=== PATIENT | female | born 1995 | race Caucasian/White ===

== ENCOUNTER 2019-12-21 13:45 | Emergency (ER) | payer OTHER ==
[2019-12-21 14:37] LABS: BILIRUBIN,URINE NEGATIVE (NEGATIVE); CLARITY,URINE CLEAR (CLEAR); GLUCOSE, URINE (UA) NEGATIVE (NEGATIVE); KETONES,URINE (UA) NEGATIVE (NEGATIVE); LEUKOCYTE ESTERASE, URINE TRACE (NEGATIVE); NITRITE,URINE NEGATIVE (NEGATIVE); OCCULT BLOOD,URINE NEGATIVE (NEGATIVE); PROTEIN,URINE NEGATIVE (NEGATIVE); UROBILINOGEN,URINE 0.2 (NORMAL) E.U./dL (NORMAL)
[2019-12-21] MEDS ORDERED: SODIUM CHLORIDE 0.9% 1,000 ML IV STA (14:43)
[2019-12-21] MEDS ORDERED: HYDROmorphone 1 MG/ML CARPUJECT IVP STA (14:43)
--- NOTE | 2019-12-21 14:43 | ED Physician Documentation ---
History of Present Illness - Stated complaint Stated Complaint: ABD PX - Chief complaint Chief Complaint: Abd Pain - History obtained from History obtained from: Patient - History of Present Illness Timing: Prior to arrival - Additonal information Additional information: 24-year-old female presents to the emergency department for sudden onset right lower quadrant abdominal pain she noted this a.m. when she woke up. She reports that it started in the periumbilical area before landing in her right lower quadrant. She has no pertinent past surgical history other than a . She reports that she really retains both of her ovaries and her appendix. Denies fevers vomiting dysuria. Denies possibility of has Nexplanon in place. Review of Systems Constitutional: reports: Reviewed and negative Throat: reports: Reviewed and negative Cardiac: reports: Reviewed and negative Respiratory: reports: Reviewed and negative GI: reports: Abdominal Pain. denies: Nausea, Vomiting, Diarrhea, Hematemesis : reports: Dysuria. denies: Frequency, Hesitancy Skin: reports: Reviewed and negative Musculoskeletal: reports: Reviewed and negative PD PAST MEDICAL HISTORY - Present Medications Home Medications: Ambulatory Orders Medication Instructions Recorded Confirmed Polyethylene Glycol 3350 [Miralax] 17 gm PO DAILY PRN #1 bottle 12/21/19 - Allergies Allergies/Adverse Reactions: Allergies Allergy/AdvReac Type Severity Reaction Status Date / Time amoxicillin Allergy Unknown Verified 12/21/19 14:05 bee venom protein (honey bee) Allergy Hives Verified 12/21/19 14:05 PD ED PE EXPANDED - General General: Alert. No: Anxious, In Pain - Cardiac Cardiac: Regular Rate, Radial strong equal, Pedal strong equal, Cap refill < 2 sec. No: Murmur Present - Respiratory Respiratory: Clear to ausultation lurdes. No: Distress, Labored - Abdomen Abdomen: Normal Bowel sounds, RLQ (Tenderness the right lower quadrant with mild guarding and rebound. Positive McBurney's) - Extremities Extremities: Normal - Neuro Neuro: Alert and Oriented X 3, CNII-XII intact - GCS Eye Opening: Spontaneous Motor: Obeys Commands Verbal: Oriented Total: 15 Results - Vitals Vitals: Vital Signs - 24 hr 12/21/19 12/21/19 13:58 16:04 Temperature 36.8 C Heart Rate 91 90 Respiratory 14 18 Rate Blood Pressure 120/74 122/71 O2 Saturation 91 L 100 Oxygen O2 Source Room air - Labs Labs: Laboratory Tests 12/21/19 12/21/19 12/21/19 14:26 14:26 14:36 WBC 8.3 RBC 4.58 Hgb 14.6 Hct 43.4 MCV 94.8 MCH 31.9 H MCHC 33.6 RDW 12.5 Plt Count 209 MPV 10.8 Neut # (Auto) 5.4 Lymph # (Auto) 2.0 [place] # (Auto) 0.6 Eos # (Auto) 0.2 Baso # (Auto) 0.0 Absolute Nucleated RBC 0.00 Nucleated RBC % 0.0 Sodium Potassium Chloride Carbon Dioxide Anion Gap BUN Creatinine Estimated GFR (MDRD) Glucose Calcium Total Bilirubin AST ALT Alkaline Phosphatase Total Protein Albumin Globulin Albumin/Globulin Ratio Lipase Urine Color YELLOW Urine Clarity CLEAR Urine pH 7.0 Ur Specific [place] 1.020 1.020 Urine Protein NEGATIVE Urine Glucose (UA) NEGATIVE Urine Ketones NEGATIVE Urine Occult Blood NEGATIVE Urine Nitrite NEGATIVE Urine Bilirubin NEGATIVE Urine Urobilinogen 0.2 (NORMAL) Ur Leukocyte Esterase TRACE H Urine RBC None Seen Urine WBC 0-3 Ur Squamous Epith Cells MOD Squamous H Amorphous Sediment Few Urine Bacteria None Seen Ur Microscopic Review INDICATED Urine Culture Comments NOT INDICATED Urine HCG, Qual NEGATIVE 12/21/19 15:18 WBC RBC Hgb Hct MCV MCH MCHC RDW Plt Count MPV Neut # (Auto) Lymph # (Auto) [place] # (Auto) Eos # (Auto) Baso # (Auto) Absolute Nucleated RBC Nucleated RBC % Sodium 141 Potassium 3.7 Chloride 105 Carbon Dioxide 26 Anion Gap 10.0 BUN 9 Creatinine 0.8 Estimated GFR (MDRD) 89 Glucose 88 Calcium 9.2 Total Bilirubin 0.9 AST 13 ALT 12 Alkaline Phosphatase 45 Total Protein 6.6 L Albumin 3.9 Globulin 2.7 Albumin/Globulin Ratio 1.4 Lipase 36 Urine Color Urine Clarity Urine pH Ur Specific [place] Urine Protein Urine Glucose (UA) Urine Ketones Urine Occult Blood Urine Nitrite Urine Bilirubin Urine Urobilinogen Ur Leukocyte Esterase Urine RBC Urine WBC Ur Squamous Epith Cells Amorphous Sediment Urine Bacteria Ur Microscopic Review Urine Culture Comments Urine HCG, Qual - Rads (name of study) CT abd Radiology: Final report received (No findings to indicate acute appendicitis. Large volume of formed stool throughout the colon is suggestive of constipation, potential source of abdominal pain. Approximately 4 cm left ovarian cyst with dilated left ovarian vein. This can indicate pelvic congestion syndrome in the proper clinical) PD MEDICAL DECISION MAKING - ED course Complexity details: reviewed results, re-evaluated patient, considered differential, d/w patient ED course: 24-year-old female presents to the emergency department for evaluation of acute onset periumbilical pain that migrated to the right lower quadrant. Her labs were essentially unremarkable. A CT scan was completed and it does show a large amount of stool throughout the colon. Obstipation/constipation is likely the source of her pain. I have recommended that she take MiraLAX for 2 to 3 days until she has 4 or 5 watery stools and then begin fiber supplementation. Emergent return precautions discussed. Departure - Departure Disposition: 01 Home, Self Care Clinical Impression: Obstipation Abdominal pain Qualifiers: Abdominal location: right lower quadrant Qualified Code(s): R10.31 - Right lower quadrant pain Condition: Stable Record reviewed to determine appropriate education?: Yes Instructions: Constipation Prescriptions: Polyethylene Glycol 3350 [Miralax] 17 gm PO DAILY PRN #1 bottle PRN Reason: Constipation Comments: Your labs today are essentially normal. However the CAT scan did show that you have a significant amount of formed stool throughout your entire colon. This is likely the cause of your pain. I do recommend that you take MiraLAX twice a day until you have 4 watery bowel movements. I would also increase the amount of free water you drink every day and once you stop taking the MiraLAX please begin taking fiber each day. If your symptoms worsen, you have bloody stools, fevers or your abdominal pain does not improve please return to the emergency department for a second evaluation
[2019-12-21 14:45] LABS: HCG UR QUAL NEGATIVE
[2019-12-21 14:46] LABS: AMORPHOUS SEDIMENT,UR Few /LPF; BACTERIA,URINE None Seen /HPF (None Seen); RBC,URINE None Seen /HPF (0-5); SQUAMOUS EPITHELIAL CELL,UR MOD Squamous (<= Few)
[2019-12-21 14:59] LABS: BASOPHILS % (AUTO) 0.4 %; EOSINOPHILS # (AUTO) 0.2 10^3/uL (0.0-0.7); EOSINOPHILS % (AUTO) 2.4 %; HGB - HEMOGLOBIN 14.6 g/dL (12.0-16.0); LYMPHOCYTES % (AUTO) 24.3 %; MEAN CORPUSCULAR HEMOGLOBIN 31.9 pg (27.0-31.0); MEAN CORPUSCULAR HGB CONC 33.6 g/dL (32.0-36.0); MEAN CORPUSCULAR VOLUME 94.8 fL (81.0-99.0); MEAN PLATELET VOLUME 10.8 fL (7.9-10.8); MONOCYTES # (AUTO) 0.6 10^3/uL (0.0-1.0); NEUTROPHILS # (AUTO) 5.4 10^3/uL (1.5-6.6); NEUTROPHILS % (AUTO) 65.5 %; PLT - PLATELET COUNT 209 10^3/uL (130-450); RED BLOOD COUNT 4.58 10^6/uL (4.20-5.40); RED CELL DISTRIBUTION WIDTH 12.5 % (12.0-15.0); WHITE BLOOD COUNT 8.3 x10^3/uL (4.8-10.8)
[2019-12-21 15:36] LABS: ALBUMIN 3.9 g/dL (3.2-5.5); ALBUMIN/GLOBULIN RATIO 1.4 (1.0-2.2); BILIRUBIN,TOTAL 0.9 mg/dL (0.2-1.0); CALCIUM 9.2 mg/dL (8.5-10.3); CREATININE 0.8 mg/dL (0.4-1.0); TOTAL PROTEIN 6.6 g/dL (6.7-8.2)
[2019-12-21] MEDS ORDERED: IOVERSOL 320 100 ML VIAL IVP ONE ×2 (15:50→18:54)
--- NOTE | 2019-12-21 16:31 | CT Report ---
PROCEDURE: Abdomen/Pelvis W INDICATIONS: acute RLQ pain; r/o appy CONTRAST: IV CONTRAST: Optiray 320 ml: 100 PO CONTRAST: *NO PO CONTRAST TECHNIQUE: After the administration of intravenous contrast, 5 mm thick sections acquired from the diaphragms to the symphysis. 5 mm thick coronal and sagittal reformats were acquired. For radiation dose reducti on, the following was used: automated exposure control, adjustment of mA and/or kV according to juan david ent size. COMPARISON: Is normal. FINDINGS: Image quality: Excellent. ABDOMEN: Lung bases: Lung bases are clear. Heart size is normal. Solid organs: Liver and spleen are normal in size and enhancement. Gallbladder normal Biliary syst em is non dilated. Pancreas enhances normally. No adrenal nodules. Kidneys demonstrate normal size and enhancement, without hydronephrosis. Peritoneum and bowel: Large volume of formed stool throughout the colon. The appendix is short and is not well visualized. There is no obvious appendiceal wall thickening nor is there adjacent inflammat ory change. Remainder of the bowel is within normal limits. Nodes and vessels: No retroperitoneal or mesenteric adenopathy by size criteria. Aorta and inferior vena cava are normal in size. Miscellaneous: No ventral hernias. PELVIS: Genitourinary: Left ovarian/adnexal cyst measuring 4 cm. Dilated left ovarian veins. Right ovary is g rossly unremarkable. Intermediate density free pelvic fluid is present, of mild-moderate volume withi n physiologic normal limits. Uterus is unremarkable. Urinary bladder is normal. Miscellaneous: No inguinal hernias or adenopathy. Bones: No suspicious bony lesions. No vertebral body compression fractures. IMPRESSION: No findings to indicate appendicitis. Large volume of formed stool throughout the colon is suggestive of constipation, potential source of abdominal pain. Approximately 4 cm left ovarian cyst with dilated left ovarian vein. This can indicate pelvic congest ion syndrome in the proper clinical setting. Reviewed by: Jarret Mcelroy MD on 12/21/2019 4:29 PM PDT Approved by: Jarret Mcelroy MD on 12/21/2019 4:29 PM PDT Station ID: [id number]
[2019-12-21 16:56] VITALS: BP 116/70
== END 2019-12-21 16:56 | disposition home or self-care (01) ==
LOC: ED 13:45
DX: K59.00 Constipation, unspecified (principal); N83.202 Unspecified ovarian cyst, left side
CPT/HCPCS: 36415; 74177; 80053; 81001; 81025; 83690; 85025; 96360; 96361; 99284; Q9967; 81003; 87086

== ENCOUNTER 2021-09-10 09:43 | Emergency (ER) | payer OTHER ==
[2021-09-10 09:50] VITALS: BP 118/73
[2021-09-10] MEDS ORDERED: ACETAMINOPHEN 500 MG TABLET PO STA (10:05)
--- NOTE | 2021-09-10 10:09 | ED Physician Documentation ---
PD HPI ABD PAIN - Stated complaint Stated Complaint: LOWER ABDOMINAL PAIN - Chief complaint Chief Complaint: Abd Pain - History obtained from History obtained from: Patient - Additional information Additional information: 26-year-old G1 now G2 at unknown gestation. She had her Nexplanon removed in April as she is hoping to get . She thinks she may be 4 to 8 weeks along. First took a test 3 days ago and its been positive a few times since albeit she thinks it is getting substance abuse counselor. She has had left lower pelvic pain for a day. No associated bleeding. 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 - Present Medications Home Medications: Ambulatory Orders Medication Instructions Recorded Confirmed No Known Home Medications 09/10/21 09/10/21 - Allergies Allergies/Adverse Reactions: Allergies Allergy/AdvReac Type Severity Reaction Status Date / Time amoxicillin Allergy Unknown Verified 09/10/21 09:48 bee venom protein (honey bee) Allergy Hives Verified 09/10/21 09:48 - Social History Does the pt smoke?: Yes Does the pt drink ETOH?: Yes Does the pt have substance abuse?: No - Immunizations Immunizations are current?: Yes PD ED PE NORMAL - Vitals Vital signs reviewed: Yes - General General: Alert and oriented X 3, No acute distress - Cardiac Cardiac: RRR, No murmur - Respiratory Respiratory: No respiratory distress, Clear bilaterally - Abdomen Abdomen: Normal bowel sounds, Soft, Non tender - Female Female : Other (I am unable to visualize an intrauterine with the use of bedside ultrasound. No free fluid.) - Derm Derm: Normal color, Warm and dry - Extremities Extremities: No edema, No calf tenderness / cord - Neuro Neuro: Alert and oriented X 3, Normal speech Results - Vitals Vitals: Vital Signs - 24 hr 09/10/21 09:48 Temperature 37.0 C Heart Rate 78 Respiratory 19 Rate Blood Pressure 118/73 O2 Saturation 100 Oxygen O2 Source Room air - Labs Labs: Laboratory Tests 09/10/21 09/10/21 09/10/21 10:16 10:16 10:16 WBC 5.5 RBC 4.86 Hgb 15.0 Hct 45.7 MCV 94.0 MCH 30.9 MCHC 32.8 RDW 12.1 Plt Count 182 MPV 10.3 Neut # (Auto) 3.3 Lymph # (Auto) 1.6 [place] # (Auto) 0.4 Eos # (Auto) 0.2 Baso # (Auto) 0.0 Absolute Nucleated RBC 0.00 Nucleated RBC % 0.0 Sodium 137 Potassium 4.1 Chloride 102 Carbon Dioxide 28 Anion Gap 7.0 BUN 8 Creatinine 0.8 Estimated GFR (MDRD) 87 L Glucose 109 H Calcium 9.9 HCG, Quant < 0.60 PD MEDICAL DECISION MAKING - ED course ED course: She presents with pelvic pain and presumed . Very benign exam. Her beta-hCG was negative here and no further work-up was deemed necessary. Departure - Departure Disposition: 01 Home, Self Care Clinical Impression: Pelvic pain in female Condition: Good Record reviewed to determine appropriate education?: Yes Instructions: ED Pelvic Pain [facility] Comments: We did a serum beta-hCG today and you are not based on an undetectable beta-hCG level. Return for new or worsening symptoms. Follow-up with your primary care physician, next available appointment. Forms: Activity restrictions
[2021-09-10 10:30] LABS: BASOPHILS % (AUTO) 0.2 %; EOSINOPHILS # (AUTO) 0.2 10^3/uL (0.0-0.7); EOSINOPHILS % (AUTO) 3.3 %; HCT - HEMATOCRIT 45.7 % (37.0-47.0); LYMPHOCYTES # (AUTO) 1.6 10^3/uL (1.5-3.5); LYMPHOCYTES % (AUTO) 29.1 %; MEAN CORPUSCULAR HEMOGLOBIN 30.9 pg (27.0-31.0); MEAN CORPUSCULAR HGB CONC 32.8 g/dL (32.0-36.0); MEAN PLATELET VOLUME 10.3 fL (7.9-10.8); MONOCYTES # (AUTO) 0.4 10^3/uL (0.0-1.0); MONOCYTES % (AUTO) 6.9 %; NEUTROPHILS # (AUTO) 3.3 10^3/uL (1.5-6.6); NEUTROPHILS % (AUTO) 60.1 %; PLT - PLATELET COUNT 182 10^3/uL (130-450); RED BLOOD COUNT 4.86 10^6/uL (4.20-5.40); RED CELL DISTRIBUTION WIDTH 12.1 % (12.0-15.0); WHITE BLOOD COUNT 5.5 x10^3/uL (4.8-10.8)
[2021-09-10 10:35] LABS: CALCIUM 9.9 mg/dL (8.5-10.3); CREATININE 0.8 mg/dL (0.4-1.0); POTASSIUM 4.1 mmol/L (3.5-5.0)
== END 2021-09-10 11:00 | disposition home or self-care (01) ==
LOC: ED 09:43
DX: O26.891 Other specified pregnancy related conditions, first trimester (principal); R10.2 Pelvic and perineal pain; Z3A.01 Less than 8 weeks gestation of pregnancy
CPT/HCPCS: 36415; 80048; 84702; 85025; 86900; 86901; 99282; 99283; A9270